=== PATIENT | female | born 1985 | race Caucasian/White ===

== ENCOUNTER 2022-08-04 11:38 | Inpatient (IN) ==
[2022-08-04] MEDS ORDERED: Nalbuphine 10 MG/ML 1 ML VIAL IV PRN (13:34)
[2022-08-04] MEDS ORDERED: Buffered Lidocaine 1% SYRIN 1 ml INTRADERM ONE (13:34)
[2022-08-04] MEDS ORDERED: Lactated Ringers 1000 ml BAG 1,000 ML IV ONE (13:34)
[2022-08-04] MEDS ORDERED: Promethazine INJ(RESTRICTED) 25 MG/ML 1 ml VIAL IV PRN (13:34)
[2022-08-04] MEDS ORDERED: Oxytocin in LR 20,000 MILLI.UNIT/1,000 ML BAG IV SCH ×2 (13:45→23:45)
[2022-08-04] MEDS ORDERED: Lactated Ringers 1000 ml BAG 1,000 ML IV SCH ×2 (14:00→23:45)
[2022-08-04 14:08] LABS: ABS Basophils 0.1 10^3/ul (0-0.2); ABS Lymphocytes 2.4 10^3/ul (1.0-4.8); ABS Monocytes 0.8 10^3/ul (0-0.8); ABS Neutrophils 14.1 10^3/ul (1.5-7.7); Eosinophil % 0.2 %; Hematocrit 36 % (35-47); Hemoglobin 12.1 g/dL (12.0-16.0); Lymphocyte % 13.7 %; Mean Corpuscular HGB Conc 33 g/dL (31-36); Mean Corpuscular Hemoglobin 30 pg (27-31); Mean Corpuscular Volume 89 fL (80-97); Mean Platelet Volume 9.6 fL (7.4-10.4); Platelet Count 208 10^3/uL (150-450); Red Blood Count 4.11 10^6 /uL (3.70-4.87); Red Cell Distribution Width 14 % (10-15); White Blood Count 17.4 10^3/uL (3.5-10.8)
[2022-08-04 15:07] LABS: Albumin 3.3 g/dL (3.2-5.2); Albumin/Globulin Ratio 1.2 (1-3); Calcium 8.9 mg/dL (8.6-10.3); Creatinine, Serum 0.59 mg/dL (0.51-0.95); Globulin 2.7 g/dL (2-4); Potassium 3.8 mmol/L (3.5-5.0); Total Bilirubin 0.6 mg/dL (0.2-1.0); Uric Acid 5.6 mg/dL (2.3-6.6); eGFR CKD-EPI 120.5 (>60)
[2022-08-04 15:49] LABS: Urine Appearance Cloudy; Urine Bilirubin Negative (Negative); Urine Blood Negative (Negative); Urine Color Yellow; Urine Glucose Negative (Negative); Urine Ketones Negative (Negative); Urine Nitrite Negative (Negative); Urine Protein Negative (Negative); Urine Specific Gravity 1.003 (1.002-1.030); Urine Urobilinogen Negative (Negative)
[2022-08-04 15:58] LABS: Urine Bacteria 1+ (Absent); Urine Red Blood Cell Trace(0-2/hpf) (Absent); Urine Squamous Epithelial Cell Present (Absent); Urine White Blood Cell 1+(6-10/hpf) (Absent)
[2022-08-04 16:11] LABS: Urine Benzodiazepine Screen None Detected (None Detect); Urine Cannabinoids Screen None Detected (None Detect); Urine Opiates Screen None Detected (None Detect)
[2022-08-04] MEDS ORDERED: OBEPIDURAL (200 ML) 200 ML EPIDURAL ONE (18:44)
[2022-08-04] MEDS ORDERED: Bupivacaine 0.25% SDV PF 10 ML VIAL INJ ONE ×2 (18:50→22:22)
[2022-08-04] MEDS ORDERED: Sodium Citrate/Citric Acid LIQ 15 ML UDC PO PRN (19:30)
[2022-08-04] MEDS ORDERED: OBEPIDURAL (200 ML) 200 ML EPIDURAL SCH (20:00)
[2022-08-04 22:07] LABS: Urine Appearance Clear; Urine Bilirubin Negative (Negative); Urine Blood Negative (Negative); Urine Color Straw; Urine Glucose Negative (Negative); Urine Ketones Negative (Negative); Urine Nitrite Negative (Negative); Urine Protein Negative (Negative); Urine Specific Gravity 1.003 (1.002-1.030); Urine Urobilinogen Negative (Negative)
[2022-08-04] MEDS ORDERED: Sterile Water for Inj 10 ML ONE (22:23)
[2022-08-04] MEDS ORDERED: Carboprost Tromethamine 250 mcg 1 ml VIAL ONE (22:59)
[2022-08-04] MEDS ORDERED: Oxytocin in LR 20,000 MILLI.UNIT/1,000 ML BAG IV ONE (23:00)
[2022-08-04] MEDS ORDERED: Carboprost Tromethamine 250 mcg 1 ml VIAL IM ONE (23:33)
[2022-08-04] MEDS ORDERED: Dibucaine 1% OINT 28.35 GM TUBE PR PRN (23:33)
[2022-08-04] MEDS ORDERED: Glycerin ADULT 2.4 gm SUPP PR PRN (23:33)
[2022-08-04] MEDS ORDERED: Witch Hazel PAD JAR TOPICAL PRN (23:33)
[2022-08-04] MEDS ORDERED: ceFOXitin 2 GM IVPREMIX 2 GM/50 ML BAG IVPB ONE (23:36)
[2022-08-05] MEDS ORDERED: Oxytocin in LR 20,000 MILLI.UNIT/1,000 ML BAG IV SCH (01:30)
[2022-08-05] MEDS ORDERED: Oxytocin in LR 0 MILLI.UNIT/0 ML BAG IV ONE (01:42)
[2022-08-05] MEDS ORDERED: ceFOXitin 2 GM PREMIX 50 ML IVPB ONE (07:30)
[2022-08-05 07:40] LABS: ABS Basophils 0.1 10^3/ul (0-0.2); ABS Eosinophils 0.1 10^3/ul (0-0.6); ABS Lymphocytes 3.2 10^3/ul (1.0-4.8); ABS Monocytes 1.2 10^3/ul (0-0.8); ABS Neutrophils 14.4 10^3/ul (1.5-7.7); Eosinophil % 0.4 %; Hematocrit 30 % (35-47); Hemoglobin 10.5 g/dL (12.0-16.0); Lymphocyte % 16.7 %; Mean Corpuscular HGB Conc 35 g/dL (31-36); Mean Corpuscular Hemoglobin 30 pg (27-31); Mean Corpuscular Volume 87 fL (80-97); Mean Platelet Volume 9.4 fL (7.4-10.4); Platelet Count 159 10^3/uL (150-450); Red Blood Count 3.48 10^6 /uL (3.70-4.87); Red Cell Distribution Width 14 % (10-15); White Blood Count 18.9 10^3/uL (3.5-10.8)
[2022-08-06 08:01] VITALS: BP 140/83
[2022-08-06] MEDS ORDERED: Measles, Mumps,Rubella VACC 0.5 ML/VIAL SUBCUT ONE (12:06)
== END 2022-08-06 13:40 | disposition home or self-care (01) | DRG 541 ==
LOC: MCHOBOUT 11:38 → MCHOB 13:35
PROVIDERS: ADMIT Obstetrics & Gynecology; ATTEND Obstetrics & Gynecology